=== PATIENT | male | born 1980 | race Caucasian/White ===

== ENCOUNTER 2021-05-05 08:40 | Emergency (ER) | payer OTHER ==
[~2021-05-05] VITALS: Ht 180.3 cm; Wt 61.0 kg
[2021-05-05 08:43] VITALS: BP 113/83
[2021-05-05] MEDS ORDERED: METH4TAB81 PO (09:05)
--- NOTE | 2021-05-05 09:06 | NUR ---
Provider in triage to evaluate patient. Pt then taken to xray via w/c.
== END 2021-05-05 09:39 | disposition home or self-care (01) ==
LOC: ER 08:41
DX: M72.2 Plantar fascial fibromatosis (principal); M79.671 Pain in right foot; Z79.899 Other long term (current) drug therapy
CPT/HCPCS: 73630; 99283